=== PATIENT | male | born 1995 | race American Indian/Alaskan Native ===

== ENCOUNTER 2021-01-23 02:18 | Emergency (ER) | payer SELFPAY ==
[2021-01-23 02:34] VITALS: BP 188/111
== END 2021-01-23 08:55 ==
LOC: EDSEX → ED 02:18
DX: I10 Essential (primary) hypertension (principal); Z53.21 Procedure and treatment not carried out due to patient leaving prior to being seen by health care provider

== ENCOUNTER 2021-09-03 19:24 | Emergency (ER) | payer SELFPAY ==
[2021-09-03 21:18] VITALS: BP 160/87
[2021-09-03] MEDS ORDERED: LIDOCAINE VISCOUS 2% 15 ML ORAL LIQD PO ONE (23:01)
[2021-09-03] MEDS ORDERED: dexAMETHasone 20 MG/5 ML VIAL IV ONE (23:01)
[2021-09-03] MEDS ORDERED: IBUPROFEN 800 MG TAB PO ONE (23:01)
--- NOTE | 2021-09-03 23:20 | Emergency Department Report ---
ED General Adult HPI - General Chief complaint: Sore Throat Stated complaint: SORE THROAT Source: patient Mode of arrival: Ambulatory Limitations: No Limitations - History of Present Illness Initial comments: Patient is a 26-year-old -Filipino male with no past medical history presents to the ED with: Of acute onset persistent sore throat with dysphagia and headache for the last 12 hours. Patient states that he keeps spitting saliva and unable to swallow because of worsening pain in the throat. Patient denies dizziness, syncope, fever, chills, nasal and sinus congestion, cough, chest pain, shortness of breath, abdominal pain, nausea, vomiting, diarrhea or back.. MD Complaint: Sore throat and dysphagia; headache -: Sudden, hour(s) (12) Location: mouth Radiation: non-radiation Severity scale (0 -10): 6 Quality: aching, sharp Consistency: constant Improves with: none Worsens with: eating Associated Symptoms: denies other symptoms, headaches, loss of appetite. denies: confusion, chest pain, cough, diaphoresis, fever/chills, malaise, nausea/vomiting, rash, seizure, shortness of breath, syncope, weakness Treatments Prior to Arrival: none - Related Data Previous Rx's Medication Instructions Recorded Last Taken Type Azithromycin [Zithromax Z-MAYA] 250 mg PO DAILY #6 tab 09/03/21 Unknown Rx Ibuprofen [Motrin] 800 mg PO Q8HR PRN #30 tablet 09/03/21 Unknown Rx Lidocaine Viscous 2% 10 ml PO Q6H PRN #120 ml 09/03/21 Unknown Rx predniSONE [Deltasone] 40 mg PO QDAY #10 tab 09/03/21 Unknown Rx Allergies Allergy/AdvReac Type Severity Reaction Status Date / Time Penicillins Allergy Unknown Verified 09/03/21 23:11 ED Review of Systems ROS: Stated complaint: SORE THROAT Other details as noted in HPI Constitutional: denies: chills, fever Eyes: denies: eye pain, eye discharge, vision change ENT: throat pain (Sore throat with dysphagia). denies: ear pain Respiratory: denies: cough, shortness of breath, wheezing Cardiovascular: denies: chest pain, palpitations Endocrine: no symptoms reported Gastrointestinal: denies: abdominal pain, nausea, diarrhea Genitourinary: denies: urgency, dysuria Musculoskeletal: denies: back pain, joint swelling, arthralgia Skin: denies: rash, lesions Neurological: headache. denies: weakness, paresthesias Psychiatric: denies: anxiety, depression Hematological/Lymphatic: denies: easy bleeding, easy bruising ED Past Medical Hx - Past Medical History Previous Medical History?: No - Surgical History Past Surgical History?: No - Social History Smoking Status: Current Every Day Smoker Substance Use Type: Alcohol - Medications Home Medications: Home Medications Medication Instructions Recorded Confirmed Last Taken Type Azithromycin [Zithromax Z-MAYA] 250 mg PO DAILY #6 tab 09/03/21 Unknown Rx Ibuprofen [Motrin] 800 mg PO Q8HR PRN #30 tablet 09/03/21 Unknown Rx Lidocaine Viscous 2% 10 ml PO Q6H PRN #120 ml 09/03/21 Unknown Rx predniSONE [Deltasone] 40 mg PO QDAY #10 tab 09/03/21 Unknown Rx ED Physical Exam - General Limitations: No Limitations General appearance: alert, in no apparent distress - Head Head exam: Present: atraumatic, normocephalic, normal inspection - Eye Eye exam: Present: normal appearance, PERRL, EOMI Pupils: Present: normal accommodation - ENT ENT exam: Present: mucous membranes moist, TM's normal bilaterally, normal external ear exam, other (Erythematous oropharynx and tonsils; no exudates or sign of peritonsillar abscess) - Neck Neck exam: Present: normal inspection, full ROM, lymphadenopathy (Palpable severe anterior cervical lymphadenopathy). Absent: tenderness - Respiratory Respiratory exam: Present: normal lung sounds bilaterally. Absent: respiratory distress, wheezes, rales, rhonchi, chest wall tenderness, accessory muscle use, decreased breath sounds, other - Cardiovascular Cardiovascular Exam: Present: regular rate, normal rhythm, normal heart sounds. Absent: systolic murmur, diastolic murmur, rubs, gallop - GI/Abdominal GI/Abdominal exam: Present: soft, normal bowel sounds. Absent: distended, tenderness, rebound, hyperactive bowel sounds - Extremities Exam Extremities exam: Present: normal inspection, full ROM, normal capillary refill. Absent: pedal edema, calf tenderness - Back Exam Back exam: Present: normal inspection, full ROM. Absent: tenderness, CVA tenderness (R), CVA tenderness (L), muscle spasm, paraspinal tenderness - Neurological Exam Neurological exam: Present: alert, oriented X3, CN II-XII intact, normal gait, reflexes normal - Psychiatric Psychiatric exam: Present: normal affect, normal mood - Skin Skin exam: Present: warm, dry, intact, normal color. Absent: rash ED Course Vital Signs 09/03/21 21:16 Temperature 99.0 F Pulse Rate 95 H Respiratory 15 Rate Blood Pressure 160/87 [Left] O2 Sat by Pulse 99 Oximetry ED Medical Decision Making - Medical Decision Making This is a 26-year-old -Fil[place] male with no past medical history presents to the ED with: Of acute onset persistent sore throat with dysphagia and headache for the last 12 hours. Patient states that he keeps spitting saliva and unable to swallow because of worsening pain in the throat. In the ED, patient is alert and oriented x3 and is not in any distress. Patient was treated in the ED for pain, and discharged home on antibiotics prescription as well as pain medications for suspected acute streptococcal tonsillitis or back pharyngitis. Patient was advised to drink plenty of fluids, take medications and follow-up with his primary care physician in 7 to 10 days for reevaluation or return to the ED immediately if symptoms get worse. - Differential Diagnosis Strep pharyngitis; bacterial tonsillitis; URI; viral pharyngitis Critical care attestation.: If time is entered above; I have spent that time in minutes in the direct care of this critically ill patient, excluding procedure time. ED Disposition Clinical Impression: Acute bacterial pharyngitis, Acute bacterial tonsillitis Disposition: HOME / SELF CARE / HOMELESS Is pt being admited?: No Does the pt Need Aspirin: No Condition: Stable Instructions: Antibiotic Medicine, Adult, [id number], Tonsillitis, [id number], Pharyngitis, [id number] Additional Instructions: Patient the history and physical exam findings, your symptoms are likely due to bacterial pharyngitis or tonsillitis. Therefore take medication with food, drink plenty of fluids and follow-up with your primary care physician in 7 to 10 days for reevaluation. Return to the ED immediately if symptoms get worse. Prescriptions: predniSONE [Deltasone] 40 mg PO QDAY #10 tab Lidocaine Viscous 2% 10 ml PO Q6H PRN #120 ml PRN Reason: Sore Throat Ibuprofen [Motrin] 800 mg PO Q8HR PRN #30 tablet PRN Reason: Pain , Severe (7-10) Azithromycin [Zithromax Z-MAYA] 250 mg PO DAILY #6 tab Referrals: [facility] [Provider Group] - 3-5 Days Forms: Work/School Release Form(ED) Time of Disposition: 23:20 Print Language: CHINESE
== END 2021-09-03 23:40 | disposition home or self-care (01) ==
LOC: ED 19:24
DX: J02.8 Acute pharyngitis due to other specified organisms (principal); B96.89 Other specified bacterial agents as the cause of diseases classified elsewhere; F17.200 Nicotine dependence, unspecified, uncomplicated; Z72.89 Other problems related to lifestyle
CPT/HCPCS: 96374; 99282; J1100